=== PATIENT | male | born 1990 | race Caucasian/White ===

== ENCOUNTER 2020-08-26 00:45 | Emergency (ER) | payer OTHER ==
[~2020-08-26] VITALS: Ht 172.7 cm; Wt 90.9 kg
--- NOTE | 2020-08-26 00:55 | NUR ---
PT BIB [facility] FROM HOME FOR C/O VOMITING BLOOD AFTER HEAVY DRINKING TODAY "6 SHOTS AND A TALL BOY", AND POSSIBLE INGESTION OF BLEACH WHEN HE WAS CLEANING HIS HOUSE. PT REPORTS HE QUIT METH & HEROIN 6 YEARS AGO BUT NOW IS AN ALCOHOLIC. ARRIVES TO ED A&OX4, INTOXICATED, HAS PICTURE OF EMESIS FROM HOME. VSS. PT STATES HE WANTS TO LEAVE, STATES, "I HAVE TO WORK TOMORROW". INFORMED PT OF POC. ERP AT BS NOW. REPORTED TO [facility] FOR CONTINUED CARE.
[2020-08-26] MEDS ORDERED: ONDANSETRON ODT 4 MG PO ONE (01:00)
[2020-08-26] MEDS ORDERED: THIAMINE 100MG TABLET PO ONE (01:00)
[2020-08-26] MEDS ORDERED: PANTOPRAZOLE 20MG TABLET PO ONE (01:00)
--- NOTE | 2020-08-26 01:12 | NUR ---
REPORT FROM LISA RN WITH ASSESSMENT NO ACUTE ABNORMALITIES NOTED. QUESTIONED ANSWERED. ESTIMATED POC REVIEWED LAB AT BEDSIDE WELL
[2020-08-26] MEDS ORDERED: ONDANSETRON ODT 4 MG ONE (01:15)
[2020-08-26] MEDS ORDERED: THIAMINE 100MG TABLET ONE (01:15)
[2020-08-26] MEDS ORDERED: PANTOPRAZOLE 20MG TABLET ONE (01:15)
[2020-08-26 01:19] LABS: BASOPHILS % (AUTO) 1 % (0-1); EOSINOPHILS % (AUTO) 1 % (1-7); LYMPHOCYTES % (AUTO) 27 % (22-44); MD NO; MEAN CORPUSCULAR HEMOGLOBIN 33.1 pg (27.5-34.5); MEAN CORPUSCULAR HGB CONC 34.4 g/dL (33.2-36.2); MEAN PLATELET VOLUME 7.5 fL (7.4-10.4); MONOCYTES % (AUTO) 11 % (2-9); NEUTROPHILS % (AUTO) 60 % (42-75); PLATELET COUNT 270 x10^3/uL (130-400); RED BLOOD COUNT 4.48 x10^6/uL (4.38-5.82); RED CELL DISTRIBUTION WIDTH 13.7 % (9.4-14.8)
--- NOTE | 2020-08-26 01:25 | NUR ---
medicated per emar
[2020-08-26 01:30] LABS: ALANINE AMINOTRANSFERASE 66 U/L (12-78); ALBUMIN 4.2 g/dL (3.4-5.0); ANION GAP 8 mmol/L (5-15); CALCIUM 8.8 mg/dL (8.5-10.1); CHLORIDE 108 mmol/L (98-107); SALICYLATE LEVEL 2.6 mg/dL (2.8-20.0)
[2020-08-26 01:32] LABS: ALKALINE PHOSPHATASE 57 U/L (45-117); BILIRUBIN,TOTAL 0.5 mg/dL (0.2-1.0); CREATININE 0.99 mg/dL (0.7-1.3); TOTAL PROTEIN 7.9 g/dL (6.4-8.2)
[2020-08-26 01:37] VITALS: BP 117/41
== END 2020-08-26 01:58 | disposition home or self-care (01) ==
LOC: ED 01:15
DX: K29.21 Alcoholic gastritis with bleeding (principal); F10.120 Alcohol abuse with intoxication, uncomplicated; R11.2 Nausea with vomiting, unspecified; R19.7 Diarrhea, unspecified; F17.210 Nicotine dependence, cigarettes, uncomplicated; Y90.0 Blood alcohol level of less than 20 mg/100 ml
CPT/HCPCS: 36415; 80053; 80299; 80320; 80329; 85025; 99284; 99406; Q0162; G0480

== ENCOUNTER 2020-11-08 11:51 | Emergency (ER) | payer OTHER ==
[~2020-11-08] VITALS: Ht 172.7 cm; Wt 95.8 kg
--- NOTE | 2020-11-08 13:30 | NUR ---
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
--- NOTE | 2020-11-08 13:43 | NUR ---
PT AMBULATORY TO ROOM 29 W/ C/O LUQ ABD LLQ ABD PAIN STARTED 1 WK AGO. PT STATES HE WENT ON VACATION AND PT DENIES ANY INJURY. PT STATES BRUISING TO L FLANK SIDE. PT RESTING ON GURNEY. NADN. MONITORS APPLIED. VSS. WARM BLANKET PROVIDED. CALL LIGHT IN REACH. ERP DR. FELDMAN AT BEDSIDE FOR EVAL.
[2020-11-08] MEDS ORDERED: KETOROLAC 30 MG/1 ML ONE (13:51)
--- NOTE | 2020-11-08 13:55 | NUR ---
[facility]. MEDICATED PER JUN.
[2020-11-08 13:57] LABS: MICROSCOPIC NOT IND
[2020-11-08] MEDS ORDERED: KETOROLAC 30 MG/1 ML IM ONE (14:00)
[2020-11-08 14:14] LABS: BASOPHILS % (AUTO) 1 % (0-1); EOSINOPHILS % (AUTO) 5 % (1-7); LYMPHOCYTES % (AUTO) 29 % (22-44); MEAN CORPUSCULAR HEMOGLOBIN 33.2 pg (27.5-34.5); MEAN PLATELET VOLUME 7.8 fL (7.4-10.4); MONOCYTES % (AUTO) 12 % (2-9); NEUTROPHILS % (AUTO) 52 % (42-75); PLATELET COUNT 276 x10^3/uL (130-400); RED BLOOD COUNT 4.42 x10^6/uL (4.38-5.82); RED CELL DISTRIBUTION WIDTH 13.4 % (9.4-14.8)
--- NOTE | 2020-11-08 14:20 | NUR ---
PT RESTING ON GURNEY. NADN. [place].
[2020-11-08 14:25] LABS: ALANINE AMINOTRANSFERASE 57 U/L (12-78); ALBUMIN 3.8 g/dL (3.4-5.0); ANION GAP 2 mmol/L (5-15); CALCIUM 8.8 mg/dL (8.5-10.1); CHLORIDE 107 mmol/L (98-107)
[2020-11-08 14:27] LABS: INTERNATIONAL NORMALIZED RATIO 0.93 (0.93-1.1); PROTHROMBIN TIME 9.7 Seconds (9.6-11.5)
[2020-11-08 14:28] LABS: ALKALINE PHOSPHATASE 61 U/L (45-117); BILIRUBIN,TOTAL 0.2 mg/dL (0.2-1.0); TOTAL PROTEIN 7.7 g/dL (6.4-8.2)
--- NOTE | 2020-11-08 14:37 | NUR ---
PT CHART REVIEWED AND PLACED FOR RECHECK.
[2020-11-08 15:01] VITALS: BP 124/78
--- NOTE | 2020-11-08 15:01 | NUR ---
PT RESTING ON GURNEY. NADN. [place].
== END 2020-11-08 16:01 | disposition home or self-care (01) ==
LOC: ED 14:11
DX: S30.1XXA Contusion of abdominal wall, initial encounter (principal); R07.89 Other chest pain; F17.200 Nicotine dependence, unspecified, uncomplicated; X58.XXXA Exposure to other specified factors, initial encounter; Y93.89 Activity, other specified; Y92.89 Other specified places as the place of occurrence of the external cause; Y99.8 Other external cause status
CPT/HCPCS: 36415; 71046; 80053; 81003; 85025; 85610; 85730; 99284; J1885